=== PATIENT | male | born 1975 | race Two or more races ===

== ENCOUNTER 2018-05-24 13:50 | Emergency (ER) | payer OTHER ==
[~2018-05-24] VITALS: Ht 188 cm; Wt 99.3 kg
[2018-05-24 14:28] VITALS: Ht 188 cm; Wt 99.3 kg
[2018-05-24 16:06] VITALS: BP 160/88
== END 2018-05-24 16:06 | disposition home or self-care (01) ==
LOC: ED 13:50
DX: S62.336A Displaced fracture of neck of fifth metacarpal bone, right hand, initial encounter for closed fracture (principal); X58.XXXA Exposure to other specified factors, initial encounter; Y93.89 Activity, other specified; Y92.89 Other specified places as the place of occurrence of the external cause; Y99.8 Other external cause status

== ENCOUNTER 2020-04-17 14:00 | Emergency (ER) | payer OTHER ==
[~2020-04-17] VITALS: Ht 188 cm; Wt 100.2 kg
[2020-04-17 14:24] VITALS: BP 130/95; Ht 188 cm; Wt 100.2 kg
== END 2020-04-17 15:52 | disposition home or self-care (01) ==
LOC: ED 14:00
DX: S61.211A Laceration without foreign body of left index finger without damage to nail, initial encounter (principal); S61.012A Laceration without foreign body of left thumb without damage to nail, initial encounter; W45.8XXA Other foreign body or object entering through skin, initial encounter; Y93.89 Activity, other specified; Y92.89 Other specified places as the place of occurrence of the external cause; Y99.8 Other external cause status
CPT/HCPCS: 90715; J2001